=== PATIENT | male | born 1980 | race African-American/Black ===

== ENCOUNTER 2024-03-07 00:37 | Emergency (ER) | payer SELFPAY ==
[2024-03-07] MEDS ORDERED: fentaNYL 50 mcg/mL 1 mL Vial ONE ×2 (00:53→03:33)
[2024-03-07] MEDS ORDERED: Boostrix 0.5 ML (Tdap) VIAL (>/=7 yrs of age) ONE (00:54)
[2024-03-07] MEDS ORDERED: Ondansetron PF 4 MG/2 ML Vial ONE (00:58)
[2024-03-07] MEDS ORDERED: Labetalol HCl 100 MG/20 ML VIAL SLOW IVP PRN (01:11)
[2024-03-07] MEDS ORDERED: hydrALAZINE 20 MG/ML VIAL SLOW IVP PRN (01:11)
[2024-03-07] MEDS ORDERED: fentaNYL 50 mcg/mL 1 mL Vial SLOW IVP PRN (01:39)
[2024-03-07] MEDS ORDERED: Sodium Chloride 0.9% 1,000 ML IV SCH (01:45)
[2024-03-07] MEDS ORDERED: Ondansetron PF 4 MG/2 ML Vial IVP PRN (01:45)
[2024-03-07] MEDS ORDERED: Ondansetron ODT 4 MG TAB SL PRN (01:45)
[2024-03-07] MEDS ORDERED: niCARdipine 25 MG/10 ML SDV ONE ×2 (02:43→02:49)
[2024-03-07 02:52] LABS: Prothrombin Time 12.8 sec (12.0-14.7)
[2024-03-07 03:14] LABS: Troponin I Less than 0.010 ng/mL (< 0.028)
== END 2024-03-07 04:07 | disposition short-term general hospital (02) ==
LOC: ERS 00:37
DX: S02.92XA Unspecified fracture of facial bones, initial encounter for closed fracture (principal); S02.119A Unspecified fracture of occiput, initial encounter for closed fracture; S06.6XAA Traumatic subarachnoid hemorrhage with loss of consciousness status unknown, initial encounter; S06.5XAA Traumatic subdural hemorrhage with loss of consciousness status unknown, initial encounter; F19.10 Other psychoactive substance abuse, uncomplicated; W22.8XXA Striking against or struck by other objects, initial encounter
CPT/HCPCS: 36415; 70450; 70486; 82550; 84484; 85610; 85730; 90471; 90715; 93005; 96361; 96365; 96375; 96376; J2405; J3010